=== PATIENT | male | born 1985 | race Caucasian/White ===

== ENCOUNTER 2022-09-25 00:28 | Emergency (ER) | payer OTHER, SELFPAY ==
[2022-09-25 00:32] VITALS: BP 145/105; PULSE 77; RESP 18; TEMP 36.4; O2SAT 99; BMI 27.9
--- NOTE | 2022-09-25 00:38 | ECG_ITS ---
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 Measurements Intervals [place] Rate: 67 P: 142 SC: 147 QRS: 89 QRSD: 88 T: -34 QT: 345 QTc: 365 Interpretive Statements ECTOPIC ATRIAL RHYTHM POSSIBLE LEFT ATRIAL ENLARGEMENT [-0.1mV P-WAVE IN V1/V2] POSSIBLE RIGHT VENTRICULAR CONDUCTION DELAY [RSR (QR) IN V1/V2] NONSPECIFIC T-WAVE ABNORMALITY No previous ECG available for comparison Electronically Signed On 09-25-2022 19:08:58 GROUND DEFENCE OFFICER by Marla Allen M.D. [id number]
--- NOTE | 2022-09-25 00:38 | XRR_ITS ---
PROCEDURE INFORMATION: Exam: XR Chest Exam date and time: 09/25/2022 12:42 AM Age: 36 years old Clinical indication: Chest pressure; Patient HX: C/O chest pain with left arm numbness; Additional info: Cp TECHNIQUE: Imaging protocol: Radiologic exam of the chest. Views: 1 view. COMPARISON: No relevant prior studies available. FINDINGS: Lungs: Unremarkable. No consolidation. Pleural spaces: Unremarkable. No pleural effusion. No pneumothorax. Heart/Mediastinum: Unremarkable. No cardiomegaly. Bones/joints: Unremarkable. XR/XR chest 1V portable [id number] IMPRESSION: No acute findings.
[2022-09-25 00:51] LABS: Basophils % 0.5 %; Eosinophils # 0.1 10^3/uL (0.0-0.8); Eosinophils % 1.6 %; Hematocrit 42.8 % (42.0-52.0); Hemoglobin 14.5 g/dL (11.7-16.6); Lymphocytes # 2.9 10^3/uL (0.8-4.8); Lymphocytes % 45.9 %; Mean Corpuscular HGB Conc 33.9 g/dL (30.0-36.0); Mean Corpuscular Hemoglobin 29.8 pg (28.0-34.0); Mean Corpuscular Volume 88.1 fl (80-94); Mean Platelet Volume 10.3 fL (7.4-10.4); Monocytes # 0.6 10^3/uL (0.2-0.9); Monocytes % 9.8 %; Neutrophils # 2.63 10^3/uL (1.8-7.7); Neutrophils % 42.2 %; Nucleated Red Blood Cells % 0 %; Platelet Count 154 10^3/cmm (130-400); Red Blood Count 4.86 10^6/uL (4.1-5.3); Red Cell Distribution Width 11.7 % (12.1-15.1); White Blood Count 6.2 10^3/uL (4.0-10.0)
--- NOTE | 2022-09-25 00:52 | ED_ITS ---
HPI - Chest Pain General: Chief Complaint: Chest Pain Stated Complaint: numbness on left side Time Seen by Provider: 09/25/22 00:30 Source: patient Mode of arrival: ambulatory Limitations: no limitations History of Present Illness: 36-year-old male states he woke up from sleep roughly an hour ago as he is having a pain in his left shoulder with numbness down his left arm he states started having some chest pain as well with diaphoresis he states that this is all since resolved he denies any pain cur rently has no numbness denies any shortness of breath he denies any worsening proving factors he has no history of heart disease he does not have diabetes or hypertension. Associated symptoms: Deny abdominal pain, dyspnea, fever(s), nausea or vomiting Review of Systems Const: Denies: fever(s), chills, body aches or change in appetite Eyes: Denies: blurry vision or eye discomfort ENMT: Denies: throat pain or dental pain Card: Reports: chest pain Resp: Denies: dyspnea GI: Denies: abdominal pain, nausea, vomiting or diarrhea : Denies: dysuria Musc: Reports: extremity pain Skin/Breast: Denies: rash Neuro: Reports: sensory changes Psych: Denies: depression Davis/Lymph: Denies: easy bruising All/Imm: Denies: urticaria PFSH ED PFSH: Medical History No pertinent past medical history Social History (Updated 09/25/22 @ 00:52 by Rodrigue Pineda MD) Smoking and tobacco status: never smoked Physical Exam Const: COMMON NORMALS: no acute distress, patient oriented x3 and healthy appearing HENMT: COMMON NORMALS: normocephalic and atraumatic HEAD & SCALP: normocephalic and atraumatic Eye: COMMON NORMALS: Equal, round and reactive pupils present and EOMs intact bilaterally PUPIL: Yes Equal, round and reactive pupils present Neck/C-Spine: COMMON NORMALS: full ROM and supple Chest: COMMONS NORMALS: normal inspection of the chest and normal palpation of entire chest wall Resp: COMMON NORMALS: normal respiratory effort, No retractions, No use of accessory muscles and clear to auscultation bilaterally AUSCULTATION: clear to auscultation bilaterally Cardio: COMMON NORMALS: regular rate, regular rhythm and No murmurs present (Cardio) RATE: regular rate RHYTHM: regular rhythm GI: COMMON NORMALS: Normal to inspection, nondistended, normoactive bowel sounds present, Soft to palpation, non-tender and no masses PALPATION: Yes Soft to palpation Extremity: COMMON NORMALS: normal to inspection and full ROM OTHER: Slight tenderness over left trapezius no numbness at this time distal pulses intact Neuro: COMMON NORMALS: patient oriented x3, moves all extremities and no focal motor deficits Psych: COMMON NORMALS: mental status grossly normal, Normal thought process present and cooperative THOUGHT PROCESS: Normal thought process present Skin: COMMON NORMALS: no rashes or lesions noted and no wounds GENERAL SKIN EXAM: no rashes or lesions noted Course Vital Signs: Vital signs: Vital Signs Temperature 97.6 F 09/25/22 00:32 Pulse Rate 60 09/25/22 03:05 Respiratory Rate 14 09/25/22 03:05 Blood Pressure 108/69 09/25/22 03:05 Pulse Oximetry 96 09/25/22 03:05 MDM - Chest Pain Medical Decision Making Patient presents here with chest pains atypical in nature is mainly pain in his shoulder and he was tender to touch his heart enzymes here are normal he has been asymptomatic here he stable for discharge he is to follow-up with PCP and return if worsening. Lab Data 09/25/22 00:42 09/25/22 00:42 Radiology Impressions Chest X-Ray 09/25/22 00:38 IMPRESSION: No acute findings. Laboratory Results WBC 6.2 10^3/uL (4.0-10.0) 09/25/22 00:42 RBC 4.86 10^6/uL (4.1-5.3) 09/25/22 00:42 Hgb 14.5 g/dL (11.7-16.6) 09/25/22 00:42 Hct 42.8 % (42.0-52.0) 09/25/22 00:42 MCV 88.1 fl (80-94) 09/25/22 00:42 MCH 29.8 pg (28.0-34.0) 09/25/22 00:42 MCHC 33.9 g/dL (30.0-36.0) 09/25/22 00:42 RDW 11.7 % (12.1-15.1) L 09/25/22 00:42 Plt Count 154 10^3/cmm (130-400) 09/25/22 00:42 MPV 10.3 fL (7.4-10.4) 09/25/22 00:42 Neut % (Auto) 42.2 % 09/25/22 00:42 Lymph % (Auto) 45.9 % 09/25/22 00:42 [place] % (Auto) 9.8 % 09/25/22 00:42 Eos % (Auto) 1.6 % 09/25/22 00:42 Baso % (Auto) 0.5 % 09/25/22 00:42 Neut # (Auto) 2.63 10^3/uL (1.8-7.7) 09/25/22 00:42 Lymph # (Auto) 2.9 10^3/uL (0.8-4.8) 09/25/22 00:42 [place] # (Auto) 0.6 10^3/uL (0.2-0.9) 09/25/22 00:42 Eos # (Auto) 0.1 10^3/uL (0.0-0.8) 09/25/22 00:42 Baso # (Auto) 0.0 10^3/uL (0.0-0.1) 09/25/22 00:42 Nucleated RBC % (auto) 0 % 09/25/22 00:42 Nucleated RBCs # 0.0 /100WBC 09/25/22 00:42 Sodium 137 mmol/L (136-145) 09/25/22 00:42 Potassium 4.1 mmol/L (3.5-5.1) 09/25/22 00:42 Chloride 100 mmol/L (98-107) 09/25/22 00:42 Carbon Dioxide 29 mmol/L (22-29) 09/25/22 00:42 Anion Gap 12.1 (5-19) 09/25/22 00:42 BUN 13 mg/dL (6-20) 09/25/22 00:42 Creatinine 0.9 mg/dL (0.7-1.2) 09/25/22 00:42 GFR Calculation 94.4 mL/min (90-130) 09/25/22 00:42 Glucose 120 mg/dL (65-115) H 09/25/22 00:42 Calculated Osmolality 285 mOsm/kg (285-295) 09/25/22 00:42 Calcium 9.4 mg/dL (8.5-10.5) 09/25/22 00:42 Total Bilirubin 0.3 mg/dL (0.15-1.2) 09/25/22 00:42 AST 19 U/L (0-40) 09/25/22 00:42 ALT 19 U/L (0-41) 09/25/22 00:42 Alkaline Phosphatase 83 U/L (40-130) 09/25/22 00:42 Troponin T Baseline 6 ng/L (0-15) 09/25/22 00:42 Troponin T 120 Minute 6.00 ng/L (0-15) 09/25/22 02:48 Total Protein 7.0 g/dL (6.6-8.7) 09/25/22 00:42 Albumin 4.5 g/dL (3.5-5.2) 09/25/22 00:42 Globulin 2.5 g/dL (1.3-4.6) 09/25/22 00:42 EKG Data EKG 1: I personally reviewed and interpreted this EKG as follows: EKG interpretation date: 09/25/22 EKG interpretation time: 00:40 Interpretation: nsr hr [address] or t wave abnormalities qrs 88 qtc 360 Discharge Plan Discharge Patient Disposition: Home Clinical Impression: Chest pain, Arm pain Discharge Orders: Discharge ED (Routine); Ordered 09/25/22 Ordered By: Rodrigue Pineda Discharge Diet: Advance as tolerated Discharge Activity: Resume usual activity Patient Instructions: Chest Pain (ED) Coding Level of Care Code ED Automatic Log Cut Off Sawyer for Chg Fwd Exam Comprehensive
[2022-09-25 01:10] LABS: Troponin(5th) Baseline 6 ng/L (0-15)
[2022-09-25 01:11] LABS: Alanine Aminotransferase 19 U/L (0-41); Albumin Level 4.5 g/dL (3.5-5.2); Alkaline Phosphatase 83 U/L (40-130); Aspartate Amino Transferase 19 U/L (0-40); Blood Urea Nitrogen 13 mg/dL (6-20); Calcium 9.4 mg/dL (8.5-10.5); Carbon Dioxide 29 mmol/L (22-29); Chloride 100 mmol/L (98-107); Globulin 2.5 g/dL (1.3-4.6); Glomerular Filtration Rate 94.4 mL/min (90-130); Glucose 120 mg/dL (65-115); Osmolality Calculated 285 mOsm/kg (285-295); Sodium 137 mmol/L (136-145); Total Bilirubin 0.3 mg/dL (0.15-1.2)
[2022-09-25 01:20] LABS: Anion Gap 12.1 (5-19); Potassium 4.1 mmol/L (3.5-5.1)
--- NOTE | 2022-09-25 02:38 | ECG_ITS ---
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 Measurements Intervals [place] Rate: 57 P: 62 [place]: 168 QRS: 39 QRSD: 86 T: 5 QT: 381 QTc: 374 Interpretive Statements SINUS BRADYCARDIA WITH SINUS ARRHYTHMIA POSSIBLE LEFT ATRIAL ENLARGEMENT [-0.1mV P-WAVE IN V1/V2] POSSIBLE RIGHT VENTRICULAR CONDUCTION DELAY [RSR (QR) IN V1/V2] NONSPECIFIC T-WAVE ABNORMALITY Compared to ECG 09/25/2022 00:40:52 Ectopic atrial rhythm no longer present T-wave abnormality still present Electronically Signed On 09-25-2022 20:37:29 GIS SCIENTIST by Marla Allen M.D. [email or web address] medical centerCanadian Playhouse Factoryavita [email or web address]/[id number]
[2022-09-25 03:05] VITALS: BP 108/69; PULSE 60; RESP 14; O2SAT 96
[2022-09-25 03:44] LABS: Troponin 5 2HR Delta 0 ABS# (0-10)
== END 2022-09-25 03:35 | disposition home or self-care (01) ==
PROVIDERS: Emergency Provider Emergency Medicine
DX: R07.9 Chest pain, unspecified (principal); M79.602 Pain in left arm
CPT/HCPCS: 71045; 80053; 84484; 85025; 93005; 99284